=== PATIENT | male | born 1985 | race Caucasian/White ===

== ENCOUNTER 2021-03-12 12:00 | Emergency (ER) | payer OTHER ==
[~2021-03-12] VITALS: Ht 180.3 cm; Wt 77.1 kg
--- NOTE | ~2021-03-12 | EMS ---
[place] [address] EMS Patient Care Report Name: REGAN FARRIS III Room #: DEP BERNARDINO Guerrero#: [id number] Admission: 03/12/21 Attend Phys: Discharge: 03/12/21 Date of : [birth year] Report #: [id number] THIS REPORT FOR: //name// Report Transmitted: 03/13/2021 07:46 EMS Care Summary [place], [place]/[facility] Incident [id number] @ 03/12/2021 11:21 Incident [address] [place] [address] Patient REGAN FARRIS Male, 36 Years 1985 Patient Address [address] [place] [address] Patient History Diabetes, Patient Medications Lantus, Insulin, Chief Complaint Hypoglycemia Disposition Transported No Lights/[place] [facility] Dispatch Reason Convulsions/Seizure Transported To [facility] Narrative M42 arrived on scene to find the patient lying supine on the ground very diaphoretic. Patient's girlfriend said he was a diabetic. Patient's girlfriend said he had 3-4 seizures that each lasted about 10-20 seconds a piece. Patient's girlfriend said each seizure was full body. [place] [address] EMS Patient Care Report Name: REGAN FARRIS III Room #: DEP Yolanda#: [id number] Admission: 03/12/21 Attend Phys: Discharge: 03/12/21 Date of : [birth year] Report #: [id number] having a previous seizure history. She said the patient takes insulin at night. Patient was alert to self and said he was a diabetic. Patient's blood sugar read low. A IV was started and the patient was given D10. Patient was becoming alert after the administration of D10. Patient was moved to the cot and seat belts were places on the patient. En route to the hospital the patient was lethargic but alert and orientated. Patient said in the past he had seizures due to his blood sugar being low and he even was in a coma for a short period of time. En route to the hospital no changes in the patient condition occurred. M42 arrived on scene of the hospital and patient care was transferred to the RN. Initial Vitals @11:33GCS: 11,Glucose: -1, @11:49P: 87,R: 16,BP: 106/69,Pain: 0/10,GCS: 15,Glucose: 163,SpO2: 97,Revised Trauma: 12, @11:52P: 90,R: 16,BP: 115/74,Pain: 0/10,GCS: 15,CO: 3,SpO2: 97,Revised Trauma: 12, Assessments @11:32MENTAL:Person Oriented,Event Oriented,Confused,SKIN:Diaphoresis,HEENT:LUNG SOUNDS:ABDOMEN:PELVIS//GI:EXTREMITIES:Left Arm: No Abnormalities,Right Arm: No Abnormalities,Left Leg: No Abnormalities,Right Leg: No Abnormalities,PULSE:Radial: 2+ Normal,NEURO:@11:46MENTAL:No Abnormalities,SKIN:Diaphoresis,HEENT:Head/Face: No Abnormalities,Eyes: No Abnormalities,Neck/Airway: No Abnormalities,LUNG SOUNDS:General: No Abnormalities,Left Upper: No Abnormalities,Right Upper: No Abnormalities,Left Lower: No Abnormalities,Right Lower: No Abnormalities,ABDOMEN:General: No Abnormalities,Left Upper: No Abnormalities,Right Upper: No Abnormalities,Left Lower: No Abnormalities,Right Lower: No Abnormalities,PELVIS//GI:No Abnormalities,EXTREMITIES:Left Arm: No Abnormalities,Right Arm: No Abnormalities,Left Leg: No Abnormalities,Right Leg: No Abnormalities,PULSE:NEURO:No Abnormalities, Impression Diabetic Hypoglycemia Procedures @11:32ALS AssessmentResponse: UnchangedSucceeded@11:35Saline Lock 0cc (18 ga) Site: Antecubital-RightResponse: UnchangedFailed@11:37Dextrose 10% - 150 Milliliters (ml) - Intravenous (IV)Response: Improved@11:37Saline Lock 10cc (20 ga) Site: Antecubital-RightResponse: UnchangedSucceeded@11:38Oxygen FlowRate: 4 Device: Nasal Cannula (NC) Response: UnchangedSucceeded Timeline 11:20,Call Received [address] [address] EMS Patient Care Report Name: REGAN FARRIS III Room #: [facility] BERNARDINO Guerrero#: [id number] Admission: 03/12/21 Attend Phys: Discharge: 03/12/21 Date of : [birth year] Report #: [id number] 11:20,Dispatch Notified 11:21,Dispatched 11:22,En Route 11:28,On Scene 11:32,At Patient 11:32,ALS Assessment,Response: UnchangedSucceeded, 11:33,BP: / M,PULSE: ,RR: R,SPO2: Ox,ETCO2: ,BG: -1,PAIN: ,GCS: 11, 11:35,Saline Lock 0cc 18 ga Site: Antecubital-Right,Response: UnchangedFailed, 11:37,Dextrose 10% - 150 Milliliters (ml) - Intravenous (IV),Response: Improved 11:37,Saline Lock 10cc 20 ga Site: Antecubital-Right,Response: UnchangedSucceeded, 11:38,Oxygen FlowRate: 4 Device: Nasal Cannula (NC) Response: UnchangedSucceeded, 11:49,BP: 106/69 M,PULSE: 87,RR: 16 R,SPO2: 97 Ox,ETCO2: ,B,PAIN: 0,GCS: 15, 11:50,Depart Scene 11:52,BP: 115/74 M,PULSE: 90,RR: 16 R,SPO2: 97 Ox,ETCO2: ,BG: ,PAIN: 0,GCS: 15, 11:56,At Destination 12:11,Call Closed Disclaimer v1.1 Copyright 2020 [employer] This EMS Care Summary contains data elements from the applicable legal record (which may be displayed differently). It is designed to provide pertinent information for the following purposes: continuity of care, clinical quality, and state data reporting. The complete legal record is available to ED staff and administrators of the receiving hospital in [employer] Patient Tracker. All data is provided "as is."
[~2021-03-12 12:00] MED LIST: AUTOJECT 21 EACH; BACTRIM DS TAB1 EACH PO; BACTROBAN CREAM30 G1 TOP; IBUPROFEN 600600 M1 PO; LANTUS SUBQ; NOVOLIN R100 UNIT/3 IJ; XANAX1 MG PO; ZOLOFT50 MG PO; regular insulin
[2021-03-12 12:21] LABS: ABSOLUTE NEUTROPHILS 3.2 thou/uL (1.4-8.2); BASOPHILS 0.8 % (0.0-2.0); EOSINOPHILS 2.2 % (0.0-3.0); HEMATOCRIT 40.2 % (42.0-52.0); HEMOGLOBIN 13.5 gm/dL (14.0-18.0); LYMPHOCYTES 46.2 % (24.0-44.0); MCHC 33.7 g/dL (28.0-37.0); MCV 95.2 fL (80.0-100.0); MONOCYTES 8.4 % (1.0-8.0); PLATELET COUNT 245 thou/uL (150-400); POLYS 42.4 % (36.0-66.0); RBC 4.22 mil/uL (4.50-6.00); RDW 12.6 % (10.5-14.5); WBC 7.5 thou/uL (4.0-11.0)
[2021-03-12 12:33] LABS: CALCIUM 8.6 mg/dL (8.5-10.1); CREATININE 1.1 mg/dL (0.7-1.3); POTASSIUM 3.3 mmol/L (3.5-5.1)
[2021-03-12 12:39] LABS: ALBUMIN 3.3 g/dL (3.4-5.0); TOTAL BILIRUBIN 0.2 mg/dL (0.2-1.0)
[2021-03-12 16:54] VITALS: BP 94/64
== END 2021-03-12 16:56 | disposition home or self-care (01) ==
LOC: ER 12:00
PROVIDERS: Emergency Medicine
DX: E10.649 Type 1 diabetes mellitus with hypoglycemia without coma (principal); R56.9 Unspecified convulsions; F17.210 Nicotine dependence, cigarettes, uncomplicated; Z79.4 Long term (current) use of insulin; Z79.899 Other long term (current) drug therapy